=== PATIENT | female | born 1950 | race American Indian/Alaskan Native ===

== ENCOUNTER 2018-06-12 10:14 | Emergency (ER) | payer OTHER ==
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
[2018-06-12 11:17] LABS: Basophils # (Auto) 0.1 K/mm3 (0.0-0.1); Basophils % (Auto) 1.1 % (0.0-1.8); Eosinophils # (Auto) 0.1 K/mm3 (0.0-0.4); Eosinophils % (Auto) 0.9 % (0.0-4.3); Hematocrit 40.4 % (30.3-42.9); Hemoglobin 13.2 gm/dl (10.1-14.3); Lymphocytes # (Auto) 1.3 K/mm3 (1.2-5.4); Lymphocytes % (Auto) 17.8 % (13.4-35.0); Mean Corpuscular HGB Conc 33 % (30-34); Mean Corpuscular Volume 89 fl (79-97); Monocytes # (Auto) 0.5 K/mm3 (0.0-0.8); Monocytes % (Auto) 6.3 % (0.0-7.3); Platelet Count 208 K/mm3 (140-440); Red Blood Count 4.53 M/mm3 (3.65-5.03); Red Cell Distribution Width 17.3 % (13.2-15.2)
[2018-06-12 11:38] LABS: Alanine Aminotransferase 29 units/L (7-56); Albumin 3.6 g/dL (3.9-5); BUN/Creatinine Ratio 6; Blood Urea Nitrogen 5 mg/dL (7-17); Calcium 8.8 mg/dL (8.4-10.2); Hemolysis Index 15
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
[2018-06-12] MEDS ORDERED: GEODON IM ONE ×2 (14:25→14:39)
--- NOTE | 2018-06-12 15:26 | Consultation ---
History of Present Illness - Reason for Consult Consult date: 06/12/18 Reason for consult: Mental Health Evaluation Requesting physician: BRITTANY BEASLEY - Chief Complaint Chief complaint: "I drive like I want" - History of Present Psychiatric Illness 67. y.o. AA female who presented to the ER for bizarre behavior. Today the patient is calm, but tangent during the assessment. She called me the provider "Efrain," that's her son's name. She was asked several questions about her actions prior to coming to the ER, her answers were not logical. The patient needed redirection to keep her on topic throughout the interview. She was asked about her mental health, she stated, "I am fine aren't you." The interview was conducted in the seclusion room because the patient became combative with staff and a prn medication had to be given. The patient denies SI/HI's. Medications and Allergies Allergies Allergy/AdvReac Type Severity Reaction Status Date / Time No Known Allergies Allergy Unverified 06/12/18 10:16 Past psychiatric history - Past Medical History Past Medical History: other (Unable to obtain ) Past Surgical History: Other (Unable to obtain) - past Psychiatric treatment and history psychiatric treatment history: Unable to obtain a psy hx and fam psy hx. - Social History Social history: lives with family Mental Status Exam - Vital signs Last Vital Signs Temp 98.2 F 06/12/18 10:21 Pulse 106 H 06/12/18 10:21 Resp 17 06/12/18 10:21 BP 166/98 06/12/18 10:21 Pulse Ox 97 06/12/18 10:21 - Exam Narrative exam: MSE: Appearance: calm Behavior: regular eye contact Speech: regular rate and tone Mood: "okay" Affect: congruent to mood Thought Process: disorganized, tangential, loose associations Thought Content: no gestures of SI/HI's, delusional Motor Activity: ambulatory Cognition: A/Ox 3 Insight: poor Judgment: poor Results Result Diagrams: 06/12/18 10:57 06/12/18 10:57 Abnormal lab results 06/12/18 06/12/18 06/12/18 Range/Units 10:30 10:57 10:57 RDW 17.3 H (13.2-15.2) % Seg Neutrophils % 73.9 H (40.0-70.0) % Potassium (3.6-5.0) mmol/L Chloride (98-107) mmol/L BUN (7-17) mg/dL Glucose (65-100) mg/dL POC Glucose 238 H (70-105) Lactic Acid 2.50 H* (0.7-2.0) mmol/L Total Bilirubin (0.1-1.2) mg/dL Alkaline Phosphatase (35-129) units/L Albumin (3.9-5) g/dL 06/12/18 Range/Units 10:57 RDW (13.2-15.2) % Seg Neutrophils % (40.0-70.0) % Potassium 3.3 L (3.6-5.0) mmol/L Chloride 94.1 L (98-107) mmol/L BUN 5 L (7-17) mg/dL Glucose 239 H (65-100) mg/dL POC Glucose (70-105) Lactic Acid (0.7-2.0) mmol/L Total Bilirubin 3.10 H (0.1-1.2) mg/dL Alkaline Phosphatase 213 H (35-129) units/L Albumin 3.6 L (3.9-5) g/dL All other labs normal. Assessment and Plan Assessment and plan: Impression: Unspecified Psychosis. Today the patient is tangent during the assessment. UDS is pending. DDx: R/O Unspecified Neuro Cog DO, R/O Bipolar DO with psychosis Recommendation/Plan: Initiate 1013 and gather collateral information to help determine proper treatment. Dispo: The patent will be referred to inpatient psy services. Will staff with Dr Sixto Ernst.
[2018-06-12 18:07] LABS: Bacteria,Urine 1+ /HPF (Negative); Bilirubin,Urine NEG (Negative); Blood,Urine SM (Negative); Color,Urine Yellow (Yellow); Mucus,Urine FEW /HPF
[2018-06-12 18:15] LABS: Amphetamine Screen,Urine PRESUMPTIVE NEGATIVE; Benzodiazepines Screen,Urine PRESUMPTIVE NEGATIVE; Cannabinoid Screen,Urine PRESUMPTIVE NEGATIVE; Cocaine Screen,Urine PRESUMPTIVE NEGATIVE; Methadone Screen,Urine PRESUMPTIVE NEGATIVE; Opiate Screen,Urine PRESUMPTIVE NEGATIVE
[2018-06-13] MEDS ORDERED: CATAPRES ONE (04:10)
[2018-06-13] MEDS ORDERED: CATAPRES PO ONE ×2 (04:11→10:17)
[2018-06-13] MEDS ORDERED: K-DUR PO ONE ×2 (09:22→17:25)
[2018-06-13] MEDS ORDERED: MACROBID PO ONE (09:26)
[2018-06-13] MEDS ORDERED: D50W (25GM) Syringe IV PRN (09:27)
[2018-06-13] MEDS: HumuLIN R SUB-Q SCH (13:27)
[2018-06-13] MEDS ORDERED: WATER FOR INJ (PF) ONE (15:55)
[2018-06-13] MEDS ORDERED: GEODON IM ONE ×2 (15:55→15:56)
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
[2018-06-14] MEDS: HumuLIN R SUB-Q SCH ×3 (09:30→18:16)
[2018-06-14] MEDS: ARICEPT PO SCH (15:00)
[2018-06-14] MEDS ORDERED: MACROBID PO ONE (19:28)
[2018-06-14] MEDS ORDERED: NORVASC ONE (23:26)
[2018-06-14] MEDS ORDERED: MACROBID ONE (23:26)
[2018-06-14] MEDS: NORVASC PO ONE (23:30)
[2018-06-15] MEDS ORDERED: LOPRESSOR PO ONE (01:48)
[2018-06-15] MEDS: HumuLIN R SUB-Q SCH ×3 (09:30→16:38)
[2018-06-15] MEDS ORDERED: ZESTRIL PO SCH (10:00)
[2018-06-15] MEDS ORDERED: NORVASC PO SCH (10:00)
[2018-06-15] MEDS: ARICEPT PO SCH (10:48)
[2018-06-15 14:58] LABS: Basophils # (Auto) 0.1 K/mm3 (0.0-0.1); Eosinophils # (Auto) 0.1 K/mm3 (0.0-0.4); Eosinophils % (Auto) 1.2 % (0.0-4.3); Hemoglobin 13.3 gm/dl (10.1-14.3); Lymphocytes # (Auto) 1.4 K/mm3 (1.2-5.4); Lymphocytes % (Auto) 21.5 % (13.4-35.0); Mean Corpuscular HGB Conc 32 % (30-34); Mean Corpuscular Volume 90 fl (79-97); Monocytes # (Auto) 0.5 K/mm3 (0.0-0.8); Monocytes % (Auto) 7.7 % (0.0-7.3); Platelet Count 194 K/mm3 (140-440); Red Blood Count 4.55 M/mm3 (3.65-5.03); Red Cell Distribution Width 17.1 % (13.2-15.2)
[2018-06-15 15:12] LABS: Alanine Aminotransferase 24 units/L (7-56); Albumin 3.3 g/dL (3.9-5); BUN/Creatinine Ratio 9; Blood Urea Nitrogen 7 mg/dL (7-17); Calcium 9.3 mg/dL (8.4-10.2); Hemolysis Index 1
[2018-06-15 17:56] VITALS: BP 158/87
== END 2018-06-15 17:50 ==
LOC: ED 10:14
DX: F29 Unspecified psychosis not due to a substance or known physiological condition (principal); F03.90 Unspecified dementia, unspecified severity, without behavioral disturbance, psychotic disturbance, mood disturbance, and anxiety; E11.65 Type 2 diabetes mellitus with hyperglycemia; F69 Unspecified disorder of adult personality and behavior; R41.89 Other symptoms and signs involving cognitive functions and awareness; J45.909 Unspecified asthma, uncomplicated
CPT/HCPCS: 36415; 80053; 80307; 81001; 82140; 82962; 85025; 96372; 99285; G0480; J3486; 80320; J1815

== ENCOUNTER 2018-06-15 16:09 | Inpatient (IN) | payer OTHER ==
[2018-06-15 19:36] LABS: Alanine Aminotransferase 21 units/L (7-56); Albumin 2.7 g/dL (3.9-5); BUN/Creatinine Ratio 10; Blood Urea Nitrogen 6 mg/dL (7-17); Calcium 8.6 mg/dL (8.4-10.2); Hemolysis Index 57
[2018-06-15] MEDS ORDERED: GEODON IM PRN (19:54)
[2018-06-15] MEDS: HumuLIN R SUB-Q SCH (22:24)
[2018-06-15] MEDS: MACROBID PO SCH (22:26)
[2018-06-15] MEDS: RisperDAL PO SCH (22:26)
--- NOTE | 2018-06-16 06:45 | Consultation ---
History of Present Illness - Reason for Consult Consult date: 06/16/18 - History of Present Illness 67-year-old woman with a history of hypertension was brought to the emergency room for bizarre behavior, her thoughts are reported to be tangential. She arrived at the [facility] last night, consult for medical management. Patient was started on Macrobid for urinary tract infection. Patient statedits too early to talk, she wants to go home. Review of system is difficult to obtain PAST MEDICAL HISTORY:hypertension PAST SURGICAL HISTORY: None SOCIAL HISTORY: Denies alcohol, drugs, tobacco FAMILY HISTORY: Hypertension Medications and Allergies Allergies Allergy/AdvReac Type Severity Reaction Status Date / Time No Known Allergies Allergy Unverified 06/12/18 10:16 Home Medications Medication Instructions Recorded Confirmed Last Taken Type Unobtainable 06/12/18 06/12/18 Unknown History Active Meds: Active Medications Amlodipine Besylate (Norvasc) 10 mg PO QDAY [facility] Donepezil HCl (Aricept) 5 mg PO QHS [facility] Insulin Human Regular (Humulin R) 0 units SUB-Q ACHS [facility]; Protocol Last Admin: 06/15/18 22:24 Dose: 3 units Documented by: Lisinopril (Zestril) 20 mg PO QDAY [facility] Nitrofurantoin Macrocrystals (Macrobid) 100 mg PO Q12HR [facility] Stop: 06/22/18 10:01 Last Admin: 06/15/18 22:26 Dose: 100 mg Documented by: Risperidone (Risperdal) 0.5 mg PO BID [facility] Last Admin: 06/15/18 22:26 Dose: 0.5 mg Documented by: Ziprasidone (Geodon) 10 mg IM Q12H PRN PRN Reason: Agitation Exam - Physical Exam Narrative exam: General Apperance: The patient lying in bed, breathing comfortable HEENT: Normocephalic, atraumatic. Pupils equally round and reactive to light, EOMI, no sclericterus or JVD or thyromegaly or nodule. , no carotid bruit, mucous membranes moist, no exudate or erythema Heart: S1-S2, regular is rhythm Lungs: Clear to auscultation bilaterally, breathing comfortable Abdomen: Positive bowel sounds, soft, nontender, nondistended, no organomegaly Extremities: No edema cyanosis clubbing Skin: no rash, nodule, warm and dry Neuro: cranial nerves 2-12 intact, speech is fluent, motor/sensory intact - Constitutional Vitals: Temp Pulse Resp BP Pulse Ox 88 16 165/95 96 06/15/18 20:55 06/15/18 20:55 06/15/18 20:55 06/15/18 20:55 Results - Labs CBC & Chem 7: 06/15/18 18:55 Labs: Abnormal lab results 06/15/18 06/15/18 Range/Units 18:55 21:23 Sodium 136 L (137-145) mmol/L BUN 6 L (7-17) mg/dL Creatinine 0.6 L (0.7-1.2) mg/dL Glucose 210 H (65-100) mg/dL POC Glucose 223 H (70-105) Total Bilirubin 2.70 H (0.1-1.2) mg/dL Alkaline Phosphatase 160 H (35-129) units/L Total Protein 6.1 L (6.3-8.2) g/dL Albumin 2.7 L (3.9-5) g/dL Assessment and Plan Assessment Hypertension Urinary tract infection Elevated LFTs Plan Patient was started on Norvasc and lisinopril Continue these medications, will adjust as needed for blood pressure control Continue Macrobid for UTI, check ultrasound of the abdomen
[2018-06-16] MEDS: HumuLIN R SUB-Q SCH ×4 (07:30→22:05)
--- NOTE | 2018-06-16 09:53 | History and Physical Report ---
GP History & Physical - History of Present Illness Date of admission: 06/15/18 Date of Examination: 06/16/18 Reason for Admission: Danger to self, Danger to others, Impaired reality testing, Psychopathology interference Chief Complaint: I am fine History of Present Illness: The patient is a 67-year-old , retired female who transferred from the ED to the [facility]. She was taken to the ED after she was found weaving in traffic. Per medical records, she had tangential thought process and patient stated that she was seeing ghosts. Urinalysis done in the ED showed evidence of urinary tract infection. She has been started on Macrobid. In my interview with the patient this morning, she was calm, pleasant, alert and fully oriented. She reports that she was stopped by the Outreach Educator because of the way she was driving. She denies being confused. She denies abusing substances including alcohol. She denies hallucinations or paranoia. She completely denies suicidal or homicidal thoughts. She describes her mood as good and stable. She reports sleeping well at night and has a healthy appetite. Legal Status: Voluntary, Involuntary Patient Problems: Current Active Problems Delirium due to another medical condition (Acute) UTI (urinary tract infection) (Acute) Reaction to Hospitalization: Resistant Substance History - Substance History Drug Use: none Hx Tobacco Use: Yes Tobacco Type: Cigarettes Alcohol Use: No Past psychiatric history - Past Medical History Past Medical History: hypertension - past Psychiatric treatment and history psychiatric treatment history: No history of psychiatric treatment. - Social History Social history: , lives with family (has some College education, no legal problems, denies access to guns. ) Results - Results Labs/Vitals: Laboratory Last Values Sodium 136 mmol/L (137-145) L 06/15/18 18:55 Potassium 3.6 mmol/L (3.6-5.0) 06/15/18 18:55 Chloride 99.2 mmol/L (98-107) 06/15/18 18:55 Carbon Dioxide 26 mmol/L (22-30) 06/15/18 18:55 Anion Gap 14 mmol/L 06/15/18 18:55 BUN 6 mg/dL (7-17) L 06/15/18 18:55 Creatinine 0.6 mg/dL (0.7-1.2) L 06/15/18 18:55 Estimated GFR > 60 ml/min 06/15/18 18:55 BUN/Creatinine Ratio 10 % 06/15/18 18:55 Glucose 210 mg/dL (65-100) H 06/15/18 18:55 POC Glucose 167 (70-105) H 06/16/18 06:52 Calcium 8.6 mg/dL (8.4-10.2) 06/15/18 18:55 Total Bilirubin 2.70 mg/dL (0.1-1.2) H 06/15/18 18:55 AST 33 units/L (5-40) 06/15/18 18:55 ALT 21 units/L (7-56) 06/15/18 18:55 Alkaline Phosphatase 160 units/L (35-129) H 06/15/18 18:55 Total Protein 6.1 g/dL (6.3-8.2) L 06/15/18 18:55 Albumin 2.7 g/dL (3.9-5) L 06/15/18 18:55 Albumin/Globulin Ratio 0.8 % 06/15/18 18:55 Vitamin B12 816.8 pg/mL (211-911) 06/15/18 18:55 Last Vital Signs Temp 97.7 F 06/16/18 07:51 Pulse 95 H 06/16/18 07:51 Resp 18 06/16/18 07:01 BP 172/93 06/16/18 07:51 Pulse Ox 97 06/16/18 07:51 Physical Examination - Constitutional Vitals: Vital Signs Temp Pulse Resp BP Pulse Ox 97.7 F 95 H 18 172/93 97 06/16/18 07:51 06/16/18 07:51 06/16/18 07:01 06/16/18 07:51 06/16/18 07:51 Temperature -Last 24 Hours Temperature 97.7 F Temperature 97.4 F General appearance: Present: no acute distress, well-nourished - EENT Eyes: Present: PERRL ENT: hearing intact - Neck Neck: Present: supple - Extremities Extremities: no ischemia, No edema Mental Status Exam - Vital signs Last Vital Signs Temp 97.7 F 06/16/18 07:51 Pulse 95 H 06/16/18 07:51 Resp 18 06/16/18 07:01 BP 172/93 06/16/18 07:51 Pulse Ox 97 06/16/18 07:51 - Exam Orientation: time, place, person Affect: normal Mood: appropriate, calm, relaxed, congruent with affect Thought Process: Intact Perceptions: none Speech: normal rate and pattern Concentration: focused Motor activity: normal Level of consciousness: alert Memory: Intact Sleep Symptoms: None Interaction: cooperative, pleasant Mini mental status exam(if necessary): 24-30 Assessment and Plan - Psychiatric problem (1) Delirium due to another medical condition Current Visit: Yes Status: Acute (2) UTI (urinary tract infection) Current Visit: Yes Status: Acute Physician Certification - Certification Statement Physician Certification Statement: This is an acknowledgement statement that ARMIN HAGAN is a 67 year old F who requires inpatient psychiatric admission for treatment which could reasonably be expected to improve the patient's condition for delirium Estimated period of time patient will need to remain in the hospital: 2 days Plan for post-hospital care: f/u with PCP PLAN Patient will be admitted for inpatient psychiatric evaluation, medication adjustment and close monitoring The patient's behavior, mood, sleep and appetite will be closely monitored. Patient will be enrolled in individual and group therapeutic sessions and encouraged to attend. Patient will be provided with a safe and structured environment. Patient's physical health needs will be addressed by the Hospitalist. Social Assessment will be completed and the Medical Assistant Dermatology will work with patient and family to ensure a suitable and safe disposition Medication adjustment will be made as clinically indicated The patient agreed on the treatment plan, understood the risk, benefit, alternative treatment, potential consequence of no treatment, and gave informed consent.
[2018-06-16] MEDS: NORVASC PO SCH (10:34)
[2018-06-16] MEDS: ZESTRIL PO SCH (10:34)
[2018-06-16] MEDS: RisperDAL PO SCH ×3 (10:34→21:36)
[2018-06-16] MEDS: MACROBID PO SCH ×2 (11:02→23:07)
--- NOTE | 2018-06-16 11:22 | Ultrasound Report ---
PROCEDURE: US ABDOMEN COMPLETE TECHNIQUE: Transverse longitudinal sonograms obtained with metzger scale sonography. HISTORY: ab lft COMPARISONS: None FINDINGS: Liver demonstrates normal size and echogenicity without focal lesion. The gallbladder is unremarkable. No cholelithiasis. No sludge. Normal wall thickness No biliary dilatation. Common bile duct diameter is 0.3 cm. Visualized aorta and IVC unremarkable Visualized pancreas unremarkable. Spleen normal size and echogenicity. 8.25 cm length. Right kidney measures 11.5 x 4.0 x 5.3 cm. Left kidney measures 11.5 x 5.5 x 3.9 cm. Kidneys demonstrate normal cortical thickness and echogenicity. Right kidney demonstrates 1 cm hypoec hoic lesion superior pole. This lesion demonstrates internal echoes and does not definitively represe nt a cyst. Kidneys demonstrate no hydronephrosis No free fluid IMPRESSION: 1 cm hypoechoic lesion superior pole right kidney. Lesion does not definitively represent a cyst. Int ernal echoes. Further evaluation with postcontrast CT recommended. Primary differential consideration s complicated cyst. Unremarkable gallbladder.. No cholelithiasis or sludge No biliary dilatation No organomegaly No hydronephrosis No free fluid This document is electronically signed by Vu Go MD., June 16 2018 11:20:33 AM ET
[2018-06-16] MEDS: ARICEPT PO SCH (21:37)
[2018-06-17] MEDS: HumuLIN R SUB-Q SCH ×4 (08:21→23:38)
[2018-06-17] MEDS: NORVASC PO SCH (09:01)
[2018-06-17] MEDS: RisperDAL PO SCH ×2 (09:01→23:33)
[2018-06-17] MEDS: ZESTRIL PO SCH (09:01)
[2018-06-17] MEDS: MACROBID PO SCH ×2 (09:02→23:38)
--- NOTE | 2018-06-17 09:40 | Progress Note ---
Subjective Date of service: 06/17/18 Principal diagnosis: Delirium due to general medical condition Subjective Comment: Patient reports good and stable mood. She denies SI/HI/AVH. She is alert and oriented. USS showed a lesion on the right kidney. CT Abdomen recommended. Will order CT abdomen. Possible discharge tomorrow if patient continues to do well. Objective - Criteria for Continued Treatment Criteria for Continued Treatment: Improving Level of Functioning - Mental Status Mental Status: Oriented x 3 - Objective Observation Participation Level: Full Assessment and Plan - Patient Problems (1) Delirium due to another medical condition Current Visit: Yes Status: Acute Plan to address problem: PLAN Patient will be admitted for inpatient psychiatric evaluation, medication adjustment and close monitoring The patient's behavior, mood, sleep and appetite will be closely monitored. Patient will be enrolled in individual and group therapeutic sessions and encouraged to attend. Patient will be provided with a safe and structured environment. Patient's physical health needs will be addressed by the Hospitalist. Social Assessment will be completed and the Recooperer will work with patient and family to ensure a suitable and safe disposition Medication adjustment will be made as clinically indicated The patient agreed on the treatment plan, understood the risk, benefit, alternative treatment, potential consequence of no treatment, and gave informed consent. (2) UTI (urinary tract infection) Current Visit: Yes Status: Acute
[2018-06-17 11:19] LABS: Alanine Aminotransferase 27 units/L (7-56); Albumin 3.6 g/dL (3.9-5); BUN/Creatinine Ratio 10; Blood Urea Nitrogen 5 mg/dL (7-17); Calcium 9.3 mg/dL (8.4-10.2); Hemolysis Index 62
[2018-06-17] MEDS: ARICEPT PO SCH (23:26)
--- NOTE | 2018-06-18 01:42 | Cat Scan Report ---
PROCEDURE: CT ABDOMEN PELVIS WO/W CON TECHNIQUE: Nonenhanced axial images were obtained from the lower lung bases to the pelvis followed b y enhanced sequences. HISTORY: 1cm lesion on Right Kidney per USS report COMPARISONS: US abdomen complete FINDINGS: Visualized lower thorax: No significant abnormality. Liver: Normal size and attenuation. Spleen: Normal size and attenuation. Gallbladder and biliary system: Normal. Pancreas: Normal. Adrenals: Normal. Kidneys: Small hypodense lesion seen in the right kidney on recent ultrasound not appreciated on this CT exam. GI tract: Wall thickening of the stomach. No bowel obstruction. Lymph nodes and mesentery: Normal. Vasculature: Normal.. Bladder: Normal. Reproductive organs: Normal. Peritoneum: No free fluid. Musculoskeletal structures: Edema within the subcutaneous tissue of the abdomen and pelvis consistent with anasarca. Degenerative disc space narrowing at L3/L4 level. Other: None . IMPRESSION: 1. Wall thickening of the stomach, appearance could be secondary to under distention versus gastritis changes in the proper clinical setting. 2. Hypodense lesion seen in the right kidney on recent ultrasound study not appreciated on the curren t CT exam. Recommend follow-up contrast MRI study or renal ultrasound surveillance. This document is electronically signed by Anca Vidal MD., June 18 2018 01:40:15 AM ET
[2018-06-18 09:54] VITALS: BP 163/89
--- NOTE | 2018-06-18 10:09 | Discharge Summary ---
Providers - Providers Date of Admission: 06/15/18 17:38 Date of discharge: 06/18/18 Attending physician: MARIA E TA MD 06/15/18 17:32 Consult to Physician [CONS] Routine Comment: Consulting Provider: MARIA E TA Physician Instructions: Reason For Exam: New Psych Admit Hospitalization Reason for admission: she was found weaving in traffic, had tangential thoughts and hallucination Condition: Good Hospital course: The patient was provided inpatient psychiatric treatment with safe and supportive environment, group therapy, individual counseling, psychiatric medication, medication adjustment, adverse effect monitor, medical evaluation, medical treatment, social service assessment, family/social support meeting, placement assessment and psycho-education. The patients mood, anxiety, thoughts, stress management skill, cognition, impulse/anger control, motivation, understanding of disease, compliance to treatment and appreciation on family/social support are improved and stabilized. At the time of discharge, the patient had no suicidal ideas, no homicidal ideas, no aggressive thoughts, no endangering behavior and no debilitating adverse effects. The patient agreed on the treatment plan, understood the risk, benefit, alternative treatment, potential consequence of no treatment, and gave informed consent. The patient was advised to be compliant with medications, not to use drugs and not to drink alcohol. The patient understands that if suicidal ideas, homicidal ideas, or any endangering thoughts arise, the patient should immediately seek for emergent assistance including but not limited to crisis hot line and emergency room. Follow up with out-patient Psychiatrist and PCP within 14 - 21 days of discharge. Disposition: - TO HOME OR SELFCARE Time spent for discharge: 37 minutes Allergies/Adverse Reactions: Allergies No Known Allergies Allergy (Unverified 06/12/18 10:16) Vital Signs: Last Vital Signs Temp 98.1 F 06/18/18 08:21 Pulse 103 H 06/18/18 08:21 Resp 18 06/18/18 08:21 BP 163/89 06/18/18 08:21 Pulse Ox 93 06/18/18 08:21 Last Lab: Laboratory Last Values Sodium 143 mmol/L (137-145) D 06/17/18 09:13 Potassium 3.0 mmol/L (3.6-5.0) L 06/17/18 09:13 Chloride 96.7 mmol/L (98-107) L 06/17/18 09:13 Carbon Dioxide 34 mmol/L (22-30) H D 06/17/18 09:13 Anion Gap 15 mmol/L 06/17/18 09:13 BUN 5 mg/dL (7-17) L 06/17/18 09:13 Creatinine 0.5 mg/dL (0.7-1.2) L 06/17/18 09:13 Estimated GFR > 60 ml/min 06/17/18 09:13 BUN/Creatinine Ratio 10 % 06/17/18 09:13 Glucose 198 mg/dL (65-100) H 06/17/18 09:13 POC Glucose 237 (70-105) H 06/17/18 16:38 Calcium 9.3 mg/dL (8.4-10.2) 06/17/18 09:13 Total Bilirubin 3.70 mg/dL (0.1-1.2) H 06/17/18 09:13 AST 43 units/L (5-40) H 06/17/18 09:13 ALT 27 units/L (7-56) 06/17/18 09:13 Alkaline Phosphatase 177 units/L (35-129) H 06/17/18 09:13 Total Protein 7.2 g/dL (6.3-8.2) 06/17/18 09:13 Albumin 3.6 g/dL (3.9-5) L 06/17/18 09:13 Albumin/Globulin Ratio 1.0 % 06/17/18 09:13 Vitamin B12 816.8 pg/mL (211-911) 06/15/18 18:55 - Discharge Diagnoses (1) Delirium due to another medical condition Status: Acute (2) UTI (urinary tract infection) Status: Acute Core Measure Documentation - Palliative Care Palliative Care/ Comfort Measures: Not Applicable - Core Measures Any of the following diagnoses?: none - VTE Discharge Requirements Deep Vein Thrombosis/Pulmonary Embolism Present on Admission: No Has pt received <5 days of overlap therapy or INR<2.0: No Anticoagulant overlap therapy prescribed at discharge: No Contraindication No Overlap Therapy order at DC: Not Indicated Exam - Constitutional Vitals: Temp Pulse Resp BP Pulse Ox 98.1 F 103 H 18 163/89 93 06/18/18 08:21 06/18/18 08:21 06/18/18 08:21 06/18/18 08:21 06/18/18 08:21 General appearance: Present: no acute distress, well-nourished - EENT Eyes: Present: PERRL ENT: hearing intact - Neck Neck: Present: supple - Extremities Extremities: no ischemia, No edema, normal color - Psychiatric Psychiatric: appropriate mood/affect, intact judgment & insight, memory intact, cooperative Plan Activity: no restrictions Weight Bearing Status: Full Weight Bearing Diet: regular Follow up with: ALFREDO ESTRADA [Other] - 7 Days Prescriptions: Nitrofurantoin Taliaferro/M-Cryst [Macrobid CAP] 100 mg PO Q12HR #10 capsule
== END 2018-06-18 14:30 | disposition home or self-care (01) | DRG 880 ==
LOC: UNDOADMIN 16:09 → 3A 16:09 → 5A 17:38
PROVIDERS: ADMIT Psychiatry & Neurology Psychiatry; ATTEND Psychiatry & Neurology Psychiatry
DX: F05 Delirium due to known physiological condition (principal); N39.0 Urinary tract infection, site not specified; I10 Essential (primary) hypertension; F17.210 Nicotine dependence, cigarettes, uncomplicated; Z82.49 Family history of ischemic heart disease and other diseases of the circulatory system; Z79.899 Other long term (current) drug therapy; Z79.4 Long term (current) use of insulin
CPT/HCPCS: 36415; 74178; 76700; 80053; 82607; 82962; G0378; J1815; Q9967